=== PATIENT | male | born 1950 | race Caucasian/White ===

== ENCOUNTER 2024-10-20 08:31 | Day surgery (SDC) | payer MEDICARE, OTHER ==
[2024-10-20] MEDS ORDERED: LIDOCAINE HCL/MPF 1% 30 ML VIAL IJ ONE (09:45)
[2024-10-20] MEDS ORDERED: BUPIVACAINE MPF 0.5% W/EPI INJ 30 ML VIAL ONE (09:45)
[2024-10-20] MEDS ORDERED: LIDOCAINE MPF 1%-EPI 1:200,000 30 ML VIAL IJ ONE (09:46)
[2024-10-20] MEDS ORDERED: BUPIVACAINE 0.5 % PF 150 MG/30 ML VIAL ONE (09:46)
[2024-10-20] MEDS ORDERED: ROCURONIUM BROMIDE 50 MG/5 ML ONE (10:51)
[2024-10-20] MEDS ORDERED: FENTANYL PF 100MCG/2ML AMPUL ONE (10:51)
== END 2024-10-20 14:45 | disposition home or self-care (01) ==
LOC: DS 08:31
PROVIDERS: ATTEND Surgery
DX: K40.30 Unilateral inguinal hernia, with obstruction, without gangrene, not specified as recurrent (principal); I10 Essential (primary) hypertension; E03.9 Hypothyroidism, unspecified; Z98.890 Other specified postprocedural states
CPT/HCPCS: 49507; 93005; 84132; 36415; J0690; J3490 ×5; J1100; J2704; J3010; J0330; J2405; J7030; C1781